=== PATIENT | male | born 1995 | race Caucasian/White ===

== ENCOUNTER 2019-05-30 10:05 | Emergency (ER) | payer MEDICAID ==
[~2019-05-30] VITALS: Ht 167.6 cm; Wt 86.0 kg
[2019-05-30] MEDS ORDERED: IBUPROFEN 800MG TABLET PO ONE (11:45)
[2019-05-30] MEDS: MORPHINE SULFATE 4 MG/ML CPJ (NOT FOR IM USE) IV STA (12:45)
[2019-05-30] MEDS: SODIUM CHLORIDE 0.9% 1,000 ML IV ONE (12:46)
[2019-05-30] MEDS: ONDANSETRON HCL 4MG/2ML INJ IV STA (12:46)
[2019-05-30 12:54] LABS: BASOPHILS % 0.3 % (0.0-2.0); EOSINOPHILS % 0.3 % (0.0-5.0); HEMATOCRIT. 48.6 % (42.0-52.0); HEMOGLOBIN. 16.4 g/dL (14.0-18.0); LYMPHOCYTES % 13.1 % (20.0-50.0); MEAN CORPUSCULAR HEMOGLOBIN 29.6 pg (28.0-32.0); MEAN CORPUSCULAR VOLUME 87.7 fL (80.0-94.0); MEAN PLATELET VOLUME 7.8 fl (7.4-10.4); MONOCYTES % 5.1 % (2.0-8.0); NEUTROPHILS % 81.2 % (40.0-76.0); PLATELET 337 x1000/uL (130-400); RED BLOOD CELL COUNT 5.55 mill/uL (4.7-6.1); RED CELL DISTRIBUTION WIDTH 13.1 % (11.6-14.6)
[2019-05-30 12:59] LABS: CHLORIDE 105 mEq/L (98-107)
[2019-05-30 13:00] LABS: PARTIAL THROMBOPLASTIN TIME 26.6 sec (23.4-31.0)
[2019-05-30] MEDS ORDERED: IOHEXOL-300 100 ML BOTTLE ONE (14:31)
[2019-05-30] MEDS: ONDANSETRON HCL 4MG/2ML INJ IV ONE (16:29)
[2019-05-30] MEDS: KETOROLAC 30MG/ML VIAL IV ONE (16:29)
[2019-05-30] MEDS: MORPHINE SULFATE 10 MG/ML CPJ IV ONE (16:29)
[2019-05-30 18:07] VITALS: BP 132/75
== END 2019-05-30 18:30 | disposition home or self-care (01) ==
LOC: ER 10:05
DX: S16.1XXA Strain of muscle, fascia and tendon at neck level, initial encounter (principal); S00.83XA Contusion of other part of head, initial encounter; S29.8XXA Other specified injuries of thorax, initial encounter; W19.XXXA Unspecified fall, initial encounter; Y93.89 Activity, other specified; Y92.89 Other specified places as the place of occurrence of the external cause; Y99.8 Other external cause status
CPT/HCPCS: 36415; 70450; 70486; 71045; 71260; 72125; 80053; 83880; 84484; 85025; 85610; 85730; 93005; 96374; 96375; 96376; 99284; J1885; J2270; J2405; J7030; Q9967

== ENCOUNTER 2019-06-05 11:31 | Emergency (ER) | payer MEDICAID ==
[~2019-06-05] VITALS: Ht 167.6 cm; Wt 95.0 kg
[2019-06-05] MEDS ORDERED: ONDANSETRON HCL 4MG/2ML INJ IV STA ×2 (14:36→16:44)
[2019-06-05] MEDS ORDERED: DICYCLOMINE 10 MG/5 ML ORAL SYR PO STA (14:36)
[2019-06-05] MEDS ORDERED: MAGNESIUM/ALUMINUM HYDROXIDE/SIMETHICONE 30ML UDC PO STA (14:36)
[2019-06-05] MEDS ORDERED: VISCOUS LIDOCAINE 2% 15 ML UDC PO STA (14:36)
[2019-06-05] MEDS ORDERED: SODIUM CHLORIDE 0.9% 1,000 ML IV ONE (14:36)
[2019-06-05 15:22] LABS: PROTHROMBIN TIME 10.7 sec (9.6-11.0)
[2019-06-05 15:23] LABS: CHLORIDE 102 mEq/L (98-107)
[2019-06-05 15:24] LABS: BASOPHILS % 0.3 % (0.0-2.0); EOSINOPHILS % 1.2 % (0.0-5.0); HEMATOCRIT. 46.3 % (42.0-52.0); HEMOGLOBIN. 15.7 g/dL (14.0-18.0); MEAN CORPUSCULAR HEMOGLOBIN 30.1 pg (28.0-32.0); MEAN CORPUSCULAR VOLUME 88.8 fL (80.0-94.0); MEAN PLATELET VOLUME 8.1 fl (7.4-10.4); MONOCYTES % 10.6 % (2.0-8.0); NEUTROPHILS % 69.9 % (40.0-76.0); PLATELET 293 x1000/uL (130-400); RED BLOOD CELL COUNT 5.21 mill/uL (4.7-6.1); RED CELL DISTRIBUTION WIDTH 13.1 % (11.6-14.6)
[2019-06-05] MEDS ORDERED: MORPHINE SULFATE 4 MG/ML CPJ (NOT FOR IM USE) IV STA (16:44)
[2019-06-05 17:54] VITALS: BP 126/75
== END 2019-06-05 18:33 | disposition home or self-care (01) ==
LOC: ER 11:31
DX: R10.9 Unspecified abdominal pain (principal); R11.2 Nausea with vomiting, unspecified
CPT/HCPCS: 36415; 74176; 80053; 83690; 85025; 85610; 96361; 96374; 96375; 96376; 99284; J2270; J2405; J7030